=== PATIENT | female | born 1965 | race Caucasian/White ===

== ENCOUNTER → 2016-08-03 | Outpatient (CLI) | payer OTHER ==
[~2016-08-03] MED LIST: GADOBUTROL 10 ML VIAL IVP ONE
--- NOTE | 2016-08-03 14:55 | MR ---
MRI breasts without and with contrast. History: Strong family history of breast cancer, ICD-10 code Z80.3. Mother and maternal grandmother w ith history of breast cancer at age 59. Screening. Comparison: Mammography September 2015. Breast MRI February 2015 and November 2013. Technique: Precontrast sagittal fat-saturated T2-weighted and Vibrant images of both breasts were ob tained. Subsequently, during intravenous administration of 5 mL Gadavist, multiphasic sagittally acq uired Vibrant MR images through both breasts were obtained. In addition, high resolution axial image s were obtained in the axial plane pre and post contrast. Data was sent to [facility] for additional an alysis including 3D reconstruction, computer-aided detection (CAD), and color-coded phase contrast en hancement evaluation. Findings: There is scattered fibrocystic enhancement in both breasts with a stable pattern to the patrick or examinations. No evidence for mass or abnormal enhancement to suggest invasive breast carcinoma. N o suspicious internal mammary or axillary lymph nodes. Impression: Benign. BI-RADS 2. Recommendation: Recommend continued annual screening mammography. Consider follow-up breast MRI in o ne year
== END ==
LOC: FIMAGING 12:32
PROVIDERS: ATTEND Physician Assistant
DX: Z80.3 Family history of malignant neoplasm of breast (principal)
CPT/HCPCS: 0159T; 77059; A9585; C8908

== ENCOUNTER → 2017-03-11 | Outpatient (CLI) | payer OTHER | LOC: FIMAGING 14:58 | PROVIDERS: ATTEND Physician Assistant | DX: Z12.31 Encounter for screening mammogram for malignant neoplasm of breast (principal) | CPT/HCPCS: G0202 ==

== ENCOUNTER → 2017-07-20 | Outpatient (CLI) | payer OTHER | LOC: BMCIMAGING 10:12 | PROVIDERS: ATTEND Physician Assistant | DX: N60.02 Solitary cyst of left breast (principal); Z80.3 Family history of malignant neoplasm of breast ==

== ENCOUNTER → 2017-09-10 | Outpatient (CLI) | payer OTHER | LOC: FIMAGING 13:45 | PROVIDERS: ATTEND Physician Assistant | DX: Z12.39 Encounter for other screening for malignant neoplasm of breast (principal); Z80.3 Family history of malignant neoplasm of breast | CPT/HCPCS: 0159T; 77059; A9585; C8908 ==

== ENCOUNTER → 2018-03-17 | Outpatient (CLI) | payer OTHER | LOC: BMCIMAGING 09:33 | PROVIDERS: ATTEND Physician Assistant | DX: Z12.31 Encounter for screening mammogram for malignant neoplasm of breast (principal) ==

== ENCOUNTER → 2018-10-04 | Outpatient (CLI) | payer OTHER | LOC: FIMAGING 13:25 | PROVIDERS: ATTEND Physician Assistant | DX: Z12.39 Encounter for other screening for malignant neoplasm of breast (principal); Z80.3 Family history of malignant neoplasm of breast | CPT/HCPCS: A9585; C8908 ==

== ENCOUNTER → 2018-10-07 | Outpatient (CLI) | payer OTHER | LOC: BMCIMAGING 10:12 | PROVIDERS: ATTEND Physician Assistant | DX: R92.8 Other abnormal and inconclusive findings on diagnostic imaging of breast (principal); Z80.3 Family history of malignant neoplasm of breast ==